=== PATIENT | male | born 1990 | race Caucasian/White ===

== ENCOUNTER 2020-02-04 23:47 | Emergency (ER) | payer SELFPAY ==
[~2020-02-04] VITALS: Ht 182.9 cm; Wt 113.0 kg
[2020-02-05] MEDS ORDERED: ACETAMINOPHEN 500MG TABLET PO ONE (00:45)
[2020-02-05 03:00] VITALS: BP 138/82
== END 2020-02-05 03:01 | disposition home or self-care (01) ==
LOC: ER 23:47
DX: R04.0 Epistaxis (principal); S02.2XXA Fracture of nasal bones, initial encounter for closed fracture; Y08.89XA Assault by other specified means, initial encounter; Y93.89 Activity, other specified; Y92.89 Other specified places as the place of occurrence of the external cause; Y99.8 Other external cause status; F41.9 Anxiety disorder, unspecified
CPT/HCPCS: 70486; 99284